=== PATIENT | female | born 1985 | race Caucasian/White ===

== ENCOUNTER 2019-01-22 23:50 | Inpatient (IN) | payer OTHER ==
[~2019-01-22] VITALS: Ht 170.2 cm; Wt 93.9 kg
[2019-01-22 23:50] VITALS: BP 105/60
[~2019-01-22 23:50] MED LIST: ALBU0.0939 IH; ALPR1TAB2 PO; BUDE1AER IH; BUPR300T70 PO; DEPER500 PO; HAL5 PO; PALI234S IM; QUET400T PO; TRAZ-343 PO
--- NOTE | 2019-01-22 23:50 | NUR ---
PATIENT BIB EMS/PD TO ER BED 5.
--- NOTE | 2019-01-22 23:50 | NUR ---
33 Y/O FEMALE BIB EMS FOR 5150/SUICIDAL IDEATION. PER EMS, PT WAS TELLING MOTHER SHE DOESN'T WANT TO WAKE UP ANYMORE. PER MOTHER, PT TOOK BANOPHEN 25MG (60 COUNT). UNSURE OF AMOUNT CONSUMED. PT ALERT TO PAIN ONLY. SPEECH GARBLED AND UNCLEAR. RESPIRATIONS EVEN AND REGULAR. BILAT EYES PERRLA. BILAT HAND STRENGTH FLACID. O2SAT 99% VIA NC @ 2LPM. X2 SIDE RAILS UP. HOB ELEVATED. ER MD AWARE. CONTINUE TO MONITOR.
--- NOTE | 2019-01-22 23:51 | NUR ---
[facility] AT BEDSIDE. Addendum: 01/23/19 at 0013 by [facility] AT BEDSIDE FOR 5150 HOLD.
[2019-01-23] MEDS ORDERED: NACL 0.9% 1,000 ML IV ONE (00:05)
--- NOTE | 2019-01-23 00:10 | NUR ---
CONTACTED POISON CONTROL REGARDING PATIENT OVERDOSE. ADVISED EKG, LABS, AND MONITORING UNTIL PATIENT RETURN TO BASELINE. ER MD HYATT NOTIFIED.
[2019-01-23 00:18] LABS: BASOPHILS % (AUTO) 0.2 % (0.0-2.0); EOSINOPHILS # (AUTO) 0.2 K/uL (0-0.4); EOSINOPHILS % (AUTO) 2.5 % (0.0-4.0); HEMOGLOBIN 14.1 g/dL (12.0-16.0); LYMPHOCYTES # (AUTO) 4.1 K/uL (2.5-16.5); LYMPHOCYTES % (AUTO) 41.1 % (20.5-51.1); MEAN CORPUSCULAR HEMOGLOBIN 31 pg (27-31); MEAN CORPUSCULAR HGB CONC 34 g/dL (33-37); MONOCYTES # (AUTO) 0.6 K/uL (0.8-1.0); MONOCYTES % (AUTO) 6.4 % (1.7-9.3); NEUTROPHILS % (AUTO) 49.8 % (42.2-75.2); PLATELET COUNT (AUTO) 244 K/uL (140-450); RED BLOOD CELL COUNT(AUTO) 4.61 MIL/uL (4.20-5.40); RED CELL DISTRIBUTION WIDTH 13.4 % (11.6-13.7)
[2019-01-23] MEDS ORDERED: GABA400C PO (00:20)
[2019-01-23] MEDS ORDERED: [UNRECOGNIZED DRUG - CODE] PO (00:20)
[2019-01-23] MEDS ORDERED: HALO10TA PO (00:20)
[2019-01-23] MEDS ORDERED: DIPH50CA69 PO (00:20)
[2019-01-23 00:26] LABS: CARBON DIOXIDE 27.8 mmol/L (21-32); CHLORIDE 107 mmol/L (98-107); CREATININE 0.7 mg/dL (0.6-1.3); GFR ARICAN-AMERICAN 125 mL/min (>90); GLUCOSE 90 mg/dL (74-106); POTASSIUM 3.8 mmol/L (3.5-5.1); SODIUM SERUM 142 mmol/L (136-145); UREA NITROGEN, BLOOD 13 mg/dL (7-18)
[2019-01-23 00:34] LABS: ALBUMIN 3.6 g/dL (3.4-5.0); ASPARTATE AMINOTRANSFERASE 14 U/L (15-37); SALICYLATE 3.2 mg/dL (2.8-20.0); TOTAL BILIRUBIN 0.3 mg/dL (0.0-1.0)
[2019-01-23 00:35] LABS: ACETAMINOPHEN < 0.5 ug/ml (10-30)
--- NOTE | 2019-01-23 00:46 | NUR ---
STRAIGHT CATH PERFORMED. PT TOLLERATED PROCEDURE WELL. 300ML CLEAR YELLOW URINE COLLECTED. SENT TO LAB. CONTINUE TO MONITOR.
[2019-01-23 00:56] LABS: BARBITURATE, URINE NEG. ng/ml (NEG <=200); BENZODIAZEPINE, URINE NEG. ng/mL (NEG <=200); CANNABINOID, URINE POS. ng/mL (NEG <=50); COCAINE, URINE NEG. ng/mL (NEG <=300); OPIATE, URINE NEG. ng/mL (NEG <=2000); PHENCYCLIDINE SCREEN,URINE NEG. ng/mL (NEG <=25)
--- NOTE | 2019-01-23 01:00 | NUR ---
PT IN BED. RESTING WITH EYES CLOSED. RR EVEN AND REGULAR. HR EVEN AND REGULAR. VSS. HOB ELEVATED. SITTER AT BEDSIDE. CONTINUE TO MONITOR.
--- NOTE | 2019-01-23 01:08 | NUR ---
CALLED FOR TELEPSYCH REQUEST PER DR. Luis HYATT
--- NOTE | 2019-01-23 01:47 | NUR ---
TELEPSYCH, DR. HUSSEIN, SPOKE WITH AMINA BEATTY
--- NOTE | 2019-01-23 01:51 | NUR ---
SPOKE TO AND GAVE REPORT TO DR ERAZO PSYCHIATRY. INSTRCUTED TO CALL BACK WHEN PT IS AWAKE AND ABLE TO ANSWER QUESTIONS.
--- NOTE | 2019-01-23 02:00 | NUR ---
PT IN BED. RESTING WITH EYES CLOSED. RR EVEN AND REGULAR. HR EVEN AND REGULAR. VSS. HOB ELEVATED. SITTER AT BEDSIDE. CONTINUE TO MONITOR.
--- NOTE | 2019-01-23 02:02 | NUR ---
PT RETURN FROM CT
--- NOTE | 2019-01-23 02:46 | NUR ---
SPOKE TO JAM FROM POISON CONTROLL. REPORT GIVEN. HE STATES TO CONTINUE AIRWAY MANAGEMENT, CARDIAC MONITORING, AND REPEAT TOXICOLOGY. PT'S VSS. AT THIS TIME. RESTING WITH EYES CLOSED. RESPIRATIONS EVEN AND REGULAR. CONTINUE TO MONITOR.
--- NOTE | 2019-01-23 03:00 | NUR ---
PT IN BED. RESTING WITH EYES CLOSED. RR EVEN AND REGULAR. HR EVEN AND REGULAR. VSS. HOB ELEVATED. SITTER AT BEDSIDE. CONTINUE TO MONITOR.
[2019-01-23] MEDS: NACL 0.9% 1,000 ML IV SCH ×2 (03:27→15:45)
[2019-01-23] MEDS ORDERED: ZOLPIDEM 5 MG TAB PO PRN (03:30)
[2019-01-23] MEDS ORDERED: DOCUSATE SODIUM 100 MG GELCAP PO PRN (03:30)
[2019-01-23] MEDS ORDERED: ONDANSETRON 4 MG/2 ML VIAL IM/IVP PRN (03:30)
[2019-01-23] MEDS ORDERED: HYDROcodone/APAP 5/325 MG 1 TAB TAB PO PRN (03:30)
[2019-01-23] MEDS ORDERED: ACETAMINOPHEN 325 MG TAB PO PRN (03:30)
[2019-01-23] MEDS ORDERED: ALBUTEROL SULFATE/IPRATROPIU 3 ML SOL IH PRN (03:40)
[2019-01-23 03:45] LABS: APPEARANCE,URINE CLEAR (CLEAR); BILIRUBIN,URINE NEGATIVE (NEGATIVE); BLOOD, URINE NEGATIVE (NEGATIVE); COLOR,URINE YELLOW (YELLOW); LEUKOCYTE ESTERASE ,URINE NEGATIVE (NEGATIVE); NITRITE, URINE NEGATIVE (NEGATIVE); UGLUCOSE NEGATIVE (NEGATIVE)
--- NOTE | 2019-01-23 03:49 | NUR ---
PT TAKEN OFF SUPPLEMENTAL OXYGEN. HOLDING AT 94% WITH RA. VSS. CONTINUE TO MONITOR.
[2019-01-23 03:52] LABS: PROTHROMBIN TIME 9.9 secs (10.8-13.4)
[2019-01-23 04:00] VITALS: BP 97/57
--- NOTE | 2019-01-23 04:00 | NUR ---
REPORT GIVEN AND CARE TRANSFERED TO AYANNA HUYNH ROOM 109A. TRANSFERED VIA RNEY WITH VSS.
--- NOTE | 2019-01-23 04:00 | NUR ---
Admitted from ER TO TELEMETRY UNIT, with chief complaint of 5150, SUICIDAL IDEATION , 33 y/o ,Female, Sedated, LETHARGIC, RESPONDS TO PAINFUL STIMULI BY MOVING EXTREMITIES, WHEN WAKEN UP SPOKE SOME WORDS BUT WENT BACK TO SLEEP AGAIN. [facility], PT WAS FOUND BY MOTHER IN THE BR HOLDING BOTTLES OF UNKNOWN PILLS THEN LATER MOM FOUND PT COMPLETELY DISORIENTED AND ALMOST UNCONSCIOUS. VS STABLE EXCEPT 02 SAT IS IN THE 80s, CN AND NURSE SUP PUT ON 2 LITERS BY N/C, 02 SAT GOES UP TO 94%. HEAD TO TOE ASSESSMENT DONE, WITH CN AND NURSE MOVIE SHOT CAMERAMAN, NOTED SMALL DRY WOUND AT THE MIDDLE FINGER OF RIGHT HAND AND SOME SCABS ON THE LEFT ARM. NO RESPIRATORY DISTRESS, NO APPEARANCE OF PAIN NOTED , FLACC -0. oriented to call light, bed, phone,television, bathroom, smoking policy,visiting hours, procedures, ID bracelet on. Belongings list checked.
--- NOTE | 2019-01-23 04:01 | NUR ---
Patient's Plan of Care was discussed and reviewed with [employer]: AYANNA LOPEZ
[2019-01-23 04:12] LABS: CHOL/HDL RATIO 3.7 (1-4.5); MAGNESIUM 1.8 mg/dL (1.8-2.4); PHOSPHORUS 4.9 mg/dL (2.5-4.9); THYROID STIMULATING HORMONE 1.63 uIU/mL (0.34-3.74)
--- NOTE | 2019-01-23 06:14 | NUR ---
STILL SLEEPING SOUNDLY. VS REMAIN STABLE - BP - 95/55, HR - 74, 02 SAT - 94 % ON 2 LITERS N/C. NEW SITTER AT THE BEDSIDE MONITORING PATIENT. WILL ENDORSED TO AM NURSE FOR CONTINUITY OF CARE.
--- NOTE | 2019-01-23 06:48 | NUR ---
RESPIRATION EVEN AND UNLABORED. CONDITION REMAIN STABLE. WILL ENDORSE TO AM NURSE FOR CONTINUITY OF CARE.
--- NOTE | 2019-01-23 07:16 | NUR ---
RECEIVED REPORT FROM VENEER TAPING MACHINE OPERATOR NURSE. PATIENT LYING DOWN IN BED SLEEPING, AROUSABLE BY TOUCH AND PAIN STIMULATION, DROWSY AT THIS TIME D/T BENADRYL OVERDOSE. RESPIRATIONS EVEN, UNLABORED, ON O2 2L/MIN VIA NC WITH O2 SAT AT 98%. SKIN COLOR APPROPRIATE TO ETHNICITY, WARM TO TOUCH. SKIN INTACT, HOWEVER, HAS BUE CLOSED SCABS. IV SITE INTACT, PATENT, AND INFUSING IVF PER MD ORDERS. REVIEWED PLAN OF CARE WITH PATIENT. REINFORCEMENT NEEDED PATIENT IS DROWSY. SAFETY MEASURES IN PLACE, CALL LIGHT WITHIN REACH. SITTER AT BEDSIDE. WILL CONTINUE TO MONITOR.
[2019-01-23 07:36] LABS: BASOPHILS % (AUTO) 0.3 % (0.0-2.0); EOSINOPHILS # (AUTO) 0.1 K/uL (0-0.4); EOSINOPHILS % (AUTO) 1.5 % (0.0-4.0); HEMATOCRIT 39.6 % (36-48); HEMOGLOBIN 13.3 g/dL (12.0-16.0); LYMPHOCYTES # (AUTO) 3.3 K/uL (2.5-16.5); LYMPHOCYTES % (AUTO) 34.8 % (20.5-51.1); MEAN CORPUSCULAR HEMOGLOBIN 31 pg (27-31); MEAN CORPUSCULAR HGB CONC 34 g/dL (33-37); MEAN CORPUSCULAR VOLUME 91.6 fL (80-94); MONOCYTES # (AUTO) 0.6 K/uL (0.8-1.0); NEUTROPHILS # (AUTO) 5.5 K/uL (1.8-7.7); NEUTROPHILS % (AUTO) 57.4 % (42.2-75.2); PLATELET COUNT (AUTO) 236 K/uL (140-450); RED BLOOD CELL COUNT(AUTO) 4.32 MIL/uL (4.20-5.40); RED CELL DISTRIBUTION WIDTH 13.4 % (11.6-13.7); WHITE BLOOD COUNT (AUTO) 9.6 K/uL (4.8-10.8)
[2019-01-23 08:00] VITALS: BP 110/62
[2019-01-23] MEDS: ALBUTEROL SULFATE/IPRATROPIU 3 ML SOL IH SCH ×3 (08:13→19:00)
--- NOTE | 2019-01-23 08:24 | NUR ---
LOC ASLEEP NOT AROUSABLE AT THIS TIME PATIENT UNABLE TO PARTICIPATE IN THE INCENTIVE SPIROMETRY THERAPY FOOTWEAR STITCHER TO ATTEMPT AT A LATER TIME
[2019-01-23 08:25] LABS: ANION GAP 11.4 (8-16); CARBON DIOXIDE 24.9 mmol/L (21-32); CREATININE 0.6 mg/dL (0.6-1.3); POTASSIUM 4.3 mmol/L (3.5-5.1)
[2019-01-23 08:27] LABS: MAGNESIUM 1.8 mg/dL (1.8-2.4); PHOSPHORUS 4.1 mg/dL (2.5-4.9)
--- NOTE | 2019-01-23 08:46 | NUR ---
PATIENT HAS BEEN SCREENED AND CATEGORIZED LOW NUTRITION RISK. PATIENT WILL BE SEEN WITHIN 7 DAYS OF ADMISSION. 01/29/[address]
[2019-01-23] MEDS ORDERED: ALPRAZolam 0.5 MG TAB PO SCH (09:00)
[2019-01-23] MEDS ORDERED: HALOPERIDOL 5 MG TAB PO SCH (09:00)
[2019-01-23] MEDS ORDERED: QUEtiapine FUMARATE 100 MG TAB PO SCH (09:00)
[2019-01-23] MEDS ORDERED: DIVALPROEX 500 MG TABEC PO SCH (09:00)
[2019-01-23] MEDS ORDERED: GABAPENTIN 100 MG CAP PO SCH (09:00)
--- NOTE | 2019-01-23 09:40 | NUR ---
PATIENT LYING DOWN IN BED SLEEPING, AROUSABLE BY VOICE AND TOUCH. CONDITION UNCHANGED. SITTER AT BEDSIDE. WILL CONTINUE TO MONITOR.
[2019-01-23] MEDS: GABAPENTIN 300 MG CAP PO SCH ×2 (10:00→22:28)
--- NOTE | 2019-01-23 10:07 | NUR ---
PATIENT LYING DOWN IN BED SLEEPING, AROUSABLE BY VOICE AND TOUCH. SCHEDULED MEDICATIONS DUE GIVEN. WILL CONTINUE TO MONITOR.
--- NOTE | 2019-01-23 11:40 | NUR ---
[facility] s/w Rosa, packet fax for review [facility] s/w Marybel no beds at this time [facility] s/w Annabel packet fax for review [facility] s/w Ray no beds [facility] s/w Lata, packet fax for review [facility] s/w Shantel no beds
--- NOTE | 2019-01-23 14:21 | NUR ---
SW attempted to complete assessment with patient. Patient did not respond to verbal stimuli. SW attempted 3x. Per nursing staff, SW will complete assessment at a later time. SW/CM will follow up as needed.
--- NOTE | 2019-01-23 14:30 | NUR ---
SATURATION 91% ON SUPPLEMENTAL OXYGEN AT 1 LPM VIA NC POST HHN THERAP INCREASED FIO2 TO 1.5 LPM VIA NC Addendum: 01/23/19 at 1446 by Jose Pérez RT YAQUELIN/AMINA NOTIFIED
--- NOTE | 2019-01-23 14:42 | NUR ---
S/W Garth (RN), patient not medically cleared. Patient to be evaled by psych MD in the evening. Once medically cleared and meets criteria for psych inpatient, will start looking for placement
--- NOTE | 2019-01-23 14:45 | NUR ---
ASLEEP SLIGHTLY AROUSABLE PATIENT UNABLE SUSTAIN ALERTNESS AND FOLLOW COMMANDS FOR INCENTIVE SPIROMETRY THERAPY
--- NOTE | 2019-01-23 15:45 | NUR ---
PATIENT LYING DOWN IN BED SLEEPING, AROUSABLE BY TOUCH. NEW IVF BAG HANGED. WILL CONTINUE TO MONITOR.
[2019-01-23 16:00] VITALS: BP 96/62
--- NOTE | 2019-01-23 16:06 | NUR ---
MOTHER CALLED AND LEFT NAME AND NUMBER OF PATIENT'S PSYCHIATRIST SINCE PATIENT WAS 15 YEARS OLD PER MOTHER REPORTS. PSYCHIATRIST: MATT TEJADA [phone] WILL NOTIFY
--- NOTE | 2019-01-23 18:00 | NUR ---
PATIENT LYING DOWN IN BED SLEEPING, AROUSABLE BY TOUCH. CONDITION UNCHANGED. WILL CONTINUE TO MONITOR.
--- NOTE | 2019-01-23 19:16 | NUR ---
GAVE REPORT TO SLOT FLOOR PERSON FOR CONTINUITY OF CARE. PATIENT IN STABLE CONDITION.
--- NOTE | 2019-01-23 19:18 | NUR ---
RECEIVED REPORT FROM AM SHIFT NURSE. PATIENT LYING DOWN IN BED SLEEPING, AROUSABLE BY TOUCH AND PAIN STIMULATION, DROWSY AT THIS TIME D/T BENADRYL OVERDOSE. RESPIRATIONS EVEN, UNLABORED, ON O2 2L/MIN VIA NC WITH O2 SAT AT 90%. HAS BUE CLOSED SCABS. AND ON R INDEX FINGER. R AC G 20 IV SITE INTACT, PATENT, AND INFUSING IVF ORDERED. REVIEWED POC. REINFORCEMENT NEEDED PATIENT IS DROWSY. SAFETY MEASURES IN PLACE, CALL LIGHT WITHIN REACH. SITTER AT BEDSIDE. WILL CONTINUE TO MONITOR.
--- NOTE | 2019-01-23 19:35 | NUR ---
PT REFUSED HHN TX AND ASSESSMENT. PT KEPT SAYING GO AWAY. NO OXYGEN IN USE. NO DISTRESS OR SOB NOTED. RN AND CHARGE NURSE AWARE. SITTER AT PT'S DOOR.
--- NOTE | 2019-01-23 19:36 | NUR ---
PT REFUSED BREATHING TX; DR. BOONE INFORMED
[2019-01-23 20:00] VITALS: BP 89/53
[2019-01-23] MEDS ORDERED: traZODone 50 MG TAB PO SCH (21:00)
[2019-01-23] MEDS: DIVALPROEX 250 MG TABEC PO SCH (22:28)
--- NOTE | 2019-01-23 23:23 | NUR ---
INFORMED DR. BOONE THAT PT REFUSED HER MEDS; SHE HAS REFUDSED EARLIER, AND TRIED TO CONVINCE HER; SHE SAID YES TO HEPARIN SQ. NON-ADMINISTERED DEPAKOTE AND GABAPENTIN.
--- NOTE | 2019-01-23 23:25 | NUR ---
PER DR. AGUILAR SAID TO WATCH OUT FOR BP; REFER FOR MAP LESS THAN 60; AND LESS THAN 90% O2 SAT
--- NOTE | 2019-01-24 00:32 | NUR ---
D5 NS STILL ONGOING NON ADMINISTERED 0032
[2019-01-24] MEDS: NACL 0.9% 1,000 ML IV SCH ×3 (00:58→23:20)
[2019-01-24 04:00] VITALS: BP 97/52
[2019-01-24] MEDS: DIVALPROEX 250 MG TABEC PO SCH (05:00)
--- NOTE | 2019-01-24 05:00 | NUR ---
PT REFUSED HER MEDS-DEPAKOTE INFORMED DR. BOONE. SAID THEY MIGHT ORDER ANOTHER ROUTE OF MEDS
--- NOTE | 2019-01-24 06:43 | NUR ---
PT ASLEEP MOST OF THE TIME BUT AROUSABLE, STILL DROWSY. PT WENT TO THE BATHROOM ONCE THIS SHIFT. NO RESPIRATORY DISTRESS LAST SAT WAS 91%. TO MONITOR O2 SAT AND MAP PER DR AND REFER ACCORDINGLY. WILL ENDORSE TO NEXT SHIFT
[2019-01-24 07:17] LABS: BASOPHILS % (AUTO) 0.2 % (0.0-2.0); EOSINOPHILS # (AUTO) 0.1 K/uL (0-0.4); EOSINOPHILS % (AUTO) 1.2 % (0.0-4.0); HEMATOCRIT 37.9 % (36-48); HEMOGLOBIN 12.7 g/dL (12.0-16.0); LYMPHOCYTES # (AUTO) 3.5 K/uL (2.5-16.5); LYMPHOCYTES % (AUTO) 33.9 % (20.5-51.1); MEAN CORPUSCULAR HEMOGLOBIN 31 pg (27-31); MEAN CORPUSCULAR HGB CONC 34 g/dL (33-37); MEAN CORPUSCULAR VOLUME 91.4 fL (80-94); MONOCYTES # (AUTO) 0.5 K/uL (0.8-1.0); MONOCYTES % (AUTO) 4.8 % (1.7-9.3); NEUTROPHILS # (AUTO) 6.2 K/uL (1.8-7.7); NEUTROPHILS % (AUTO) 59.9 % (42.2-75.2); PLATELET COUNT (AUTO) 224 K/uL (140-450); RED BLOOD CELL COUNT(AUTO) 4.14 MIL/uL (4.20-5.40); RED CELL DISTRIBUTION WIDTH 13.4 % (11.6-13.7); WHITE BLOOD COUNT (AUTO) 10.3 K/uL (4.8-10.8)
--- NOTE | 2019-01-24 07:26 | NUR ---
RECEIVED BEDSIDE REPORT FROM COMPOSING ROOM SUPERVISOR NURSE FOR CONTINUITY OF CARE. PATIENT IS AWAKE AND WALKING TO THE BATHROOM AT THIS TIME. EVEN AND UNLABORED CHEST RISES NOTED. DENIES PAIN AND SOB. NO SIGNS OF DISTRESS NOTED. IV ON RAC 20G, CLEAN AND DRY, INFUSING PER MD ORDER. SCABS ON BUE AND INDEX FINGER, OTHERWISE SKIN INTACT AND CLEAN. PATIENT IS ABLE TO AMBULATE WITH STANDBY AND CONTINENT. DISCUSSED PLAN OF CARE WITH PATIENT AND PATIENT VERBALIZED OK. SAFETY MEASURES IN PLACE. BED IN LOW POSITION. 1:1 SITTER BY BEDSIDE.
[2019-01-24 07:33] LABS: ANION GAP 11.9 (8-16); CARBON DIOXIDE 26.3 mmol/L (21-32); CREATININE 0.7 mg/dL (0.6-1.3); MAGNESIUM 1.6 mg/dL (1.8-2.4); PHOSPHORUS 3.1 mg/dL (2.5-4.9); POTASSIUM 4.2 mmol/L (3.5-5.1)
[2019-01-24 08:00] VITALS: BP 101/62
[2019-01-24] MEDS: VENLAFAXINE XR 75 MG CAPER PO SCH ×2 (09:38→19:55)
[2019-01-24] MEDS: GABAPENTIN 300 MG CAP PO SCH ×2 (09:38→19:56)
--- NOTE | 2019-01-24 09:42 | NUR ---
ADMINISTERED MEDS PER MD ORDER, PATIENT TOLERATED WELL. PATIENT IS RESTING ON BED AT THIS TIME. SAFETY MEASURES IN PLACE. 1:1 SITTER AT BEDSIDE.
--- NOTE | 2019-01-24 10:05 | NUR ---
PATIENT COMPLAINED SHE HAS URINATION URGENCY BUT SHE COULDN'T URINE AND TRIED 2X. PERFORMED URINE BLADDER SCAN AND OBSERVED 951ML URINE. NOTIFIED DR GRAY AND PER DR GRAY, SHE WILL PUTS IN AN ORDER FOR STRAIGHT CATH.
--- NOTE | 2019-01-24 10:15 | NUR ---
PATIENT IS ACKNOWLEDGED AND AGREED FOR STRAIGHT CATH. PATIENT AGREED AND GAVE VERBAL PERMIT THAT PROFESSOR MOSELEY IS PERFORMING THE STRAIGHT CATH AND HER FEMALE STUDENT NURSE OBSERVE. PREFORMED STRIGHT CATH AND COLLECTED 1100 ML OF URINE, PATIENT TOLERATED WELL. NO SIGNS OF DISTRESS NOTED. BED IN LOW POSITION. 1:1 SITTER AT BEDSIDE.
--- NOTE | 2019-01-24 10:51 | NUR ---
PATIENT IS TALKING TO MOTHER THOMPSON AT BEDSIDE. NO SIGNS OF DISTRESS NOTED. SAFETY MEASURES IN PLACE. 1:1 SITTER BY BEDSIDE.
--- NOTE | 2019-01-24 11:30 | NUR ---
CALLED [phone] TO [facility] AND GAVE FULL REPORT TO JAVY, ANSWERED ALL JAVY'S QUESTIONS. JAVY VERBALIZED AND ACKNOWLEDGED THAT PATIENT IS GOING TO TRANSFER TO HIS FACILITY AND UNDER THE CARE OF DR PISANO IN ROOM 706 BED 1. PROVIDED CALL BACK NUMBER TO JAVY FOR FURTHER QUESTION. Addendum: 01/24/19 at 1202 by Jade Hinton RN WRONG PATIENT
--- NOTE | 2019-01-24 11:45 | NUR ---
DR GRAY IS TALKING TO PATIENT AND PATIENT'S MOTHER AT BEDSIDE. SAFETY MEASURES IN PLACE. BED IN LOW POSITION. 1:1 SITTER AT BEDSIDE.
--- NOTE | 2019-01-24 11:52 | NUR ---
PATIENT COMPLAINED OF FEELING ANXIOUS, ADMINISTERED PRN ATIVAN, PATIENT TOLERATED WELL. PATIENT IS TALKING TO EMBROIDERY CUTTER AT THIS TIME. BED IN LOW POSITION. SAFETY MEASURES IN PLACE. 1:1 SITTER BY BEDSIDE.
[2019-01-24] MEDS: LORazepam 2 MG/ML VIAL IM/IVP PRN (11:55)
[2019-01-24] MEDS ORDERED: MAGNESIUM OXIDE 400 MG TAB PO SCH (12:00)
--- NOTE | 2019-01-24 13:06 | NUR ---
PATIENT IS TALKING TO DIRECT SUPPORT PROFESSIONAL. NO SIGNS OF DISTRESS NOTED. BED IN LOW POSITION. 1:1 SITTER AT BEDSIDE.
--- NOTE | 2019-01-24 15:16 | NUR ---
PATIENT IS RESTING ON BED. EVEN CHEST RINSES NOTED. NO SIGNS OF DISTRESS NOTED. BED IN LOW POSITION AND SAFETY MEASURES IN PLACE. 1:[address]
[2019-01-24 16:00] VITALS: BP 104/63
--- NOTE | 2019-01-24 16:34 | NUR ---
SW faxed clinical information to [facility] [phone]. SW spoke to [facility] [phone]. SW/KATHY will follow up as needed.
--- NOTE | 2019-01-24 17:10 | NUR ---
PATIENT IS SITTING UP ON BED AND EATING DINNER. RESPIRATION EVEN AND UNLABORED. DENIES SUICIDAL IDEATION. NO SIGNS OF DISTRESS NOTED. BED IN LOW POSITION AND SAFETY MEASURES IN PLACE. 1:1 SITTER BY BEDSIDE.
--- NOTE | 2019-01-24 18:23 | NUR ---
D/C ORDER RECEIVED AND ACKNOWLEDGED, PENDING ON INPATIENT PSYCH FACILITY PLACEMENT AT THIS TIME. WILL PROCESS D/C DOCUMENTATION ONCE HEAR FROM CM/SS.
--- NOTE | 2019-01-24 19:11 | NUR ---
ENDORSED PATIENT AT BEDSIDE TO HEATING ELEMENT BUILDER NURSE FOR CONTINUITY OF CARE. PATIENT IS AWAKE AND GETTING BREATHING TREATMENT AT THIS TIME. PATIENT IS IN STABLE CONDITION. BED IN LOW POSITION AND SAFETY MEASURES IN PLACE. 1:1 SITTER BY BEDSIDE.
--- NOTE | 2019-01-24 19:15 | NUR ---
RECEIVED PT FROM RHONDA RN PT IS AAOX3 AMBULATORY, IV ON RT AC INFUSING WELL SCABS ON BUE, PT COOPERATIVE TO FOLLOW COMMANDS , SITTER 1:1 ALL TIMES FOR DX SUICIDAL IDEATION ON CLOSE MONITORING INITIAL ASSESSMENT DONE
[2019-01-24] MEDS: HALOPERIDOL 5 MG TAB PO SCH ×2 (19:54→19:55)
[2019-01-24 20:00] VITALS: BP 105/60
--- NOTE | 2019-01-24 21:00 | NUR ---
PT RESTING ON BED NOT DISTRESS NOTED SITTER AT BED SIDE ALL TIME
--- NOTE | 2019-01-24 23:00 | NUR ---
AFTER ALL NIGHT MEDIC GIVEN PT IS SLEEPING AND VITALS SIGNS STABLE , SITTER AT BED SIDE PT ON CLOSE MONITORING
[2019-01-25] VITALS: BP 101/58
--- NOTE | 2019-01-25 02:00 | NUR ---
PT REMAIN QUIET NOT AGITATION, IV ON RT HAND INFUSING WELL SITTER AT BED SIDE ALL TIMES
--- NOTE | 2019-01-25 03:19 | NUR ---
Still no beds available , will continue to look for placement, floor nurse Xi HUYNH made aware.
--- NOTE | 2019-01-25 04:00 | NUR ---
SPONGE BTH GIVEN LINEN CHANGED PT REMAIN QUIET NOT ANXIOUS, IV ON RT ARM INFUSING WELL, SITTER AT BED SIDE ALL TIMES
[2019-01-25] MEDS: ALBUTEROL SULFATE/IPRATROPIU 3 ML SOL IH SCH ×4 (06:33→19:38)
--- NOTE | 2019-01-25 06:37 | NUR ---
SITTER AT BED SIDE ALL TIMES PT RESTING ON BED, NOT AGITATION , REMAIN STABLE, IV ON RT HAND INFUSING WELL PT WILL BE ENDORSED TO DAY SHIFT NURSE FOR CONTINUITY OF CARE
[2019-01-25 06:57] LABS: BASOPHILS % (AUTO) 0.3 % (0.0-2.0); EOSINOPHILS # (AUTO) 0.2 K/uL (0-0.4); EOSINOPHILS % (AUTO) 2.4 % (0.0-4.0); HEMATOCRIT 38.9 % (36-48); HEMOGLOBIN 13.1 g/dL (12.0-16.0); LYMPHOCYTES # (AUTO) 3.3 K/uL (2.5-16.5); LYMPHOCYTES % (AUTO) 41.1 % (20.5-51.1); MEAN CORPUSCULAR HEMOGLOBIN 31 pg (27-31); MEAN CORPUSCULAR HGB CONC 34 g/dL (33-37); MEAN CORPUSCULAR VOLUME 91.5 fL (80-94); MONOCYTES # (AUTO) 0.5 K/uL (0.8-1.0); MONOCYTES % (AUTO) 5.7 % (1.7-9.3); NEUTROPHILS % (AUTO) 50.5 % (42.2-75.2); PLATELET COUNT (AUTO) 224 K/uL (140-450); RED BLOOD CELL COUNT(AUTO) 4.25 MIL/uL (4.20-5.40); RED CELL DISTRIBUTION WIDTH 13.5 % (11.6-13.7)
[2019-01-25 07:00] LABS: ANION GAP 10.2 (8-16); CARBON DIOXIDE 24.8 mmol/L (21-32); CREATININE 0.6 mg/dL (0.6-1.3)
[2019-01-25 07:13] LABS: MAGNESIUM 1.5 mg/dL (1.8-2.4)
--- NOTE | 2019-01-25 07:14 | NUR ---
RECEIVED BED SIDE REPORT FROM SENIOR SOFTWARE ARCHITECT RN. PT IN STABLE CONDITION. SEEN WASHING FACE AND TEETH WITH SITTER AT SIDE. WILL CONTINUE TO MONITOR
[2019-01-25] MEDS: NACL 0.9% 1,000 ML IV SCH ×2 (07:52→17:01)
[2019-01-25 08:00] VITALS: BP 109/55
--- NOTE | 2019-01-25 08:37 | NUR ---
LATRICE called [facility] to follow up with bed availability. Spoke to Curt [phone]. Curt stated he received fax and that he would call back with further information. LATRICE/KATHY will follow up as needed.
[2019-01-25] MEDS: HALOPERIDOL 5 MG TAB PO SCH ×2 (08:41→20:10)
[2019-01-25] MEDS: GABAPENTIN 300 MG CAP PO SCH ×2 (08:41→20:09)
[2019-01-25] MEDS: VENLAFAXINE XR 75 MG CAPER PO SCH ×2 (08:41→20:09)
[2019-01-25] MEDS: MORPHINE SULFATE 2 MG/ML SYR IVP PRN (08:45)
[2019-01-25] MEDS: NICOTINE TRANSD SYS 21 MG/24 HR PATCH TD SCH (08:50)
[2019-01-25] MEDS: LORazepam 2 MG/ML VIAL IM/IVP PRN ×2 (11:24→20:12)
--- NOTE | 2019-01-25 11:30 | NUR ---
PT STATED "I DONT WANT TO LIVE ANYMORE, I DONT HAVE A PURPOSE" AND WAS CRYING. GAVE ATIVAN PER MD ORDER, WILL CONTINUE TO MONITOR
--- NOTE | 2019-01-25 12:01 | NUR ---
LATRICE called [facility] [phone]. Spoke to Nay in Admissions. Nay stated that he was unable to take this patient because she ran out of psych bed days. LATRICE/KATHY will follow up as needed.
--- NOTE | 2019-01-25 13:39 | NUR ---
WENT TO CHECK ON PT. PT SEEMS CALMER, CURRENTLY EATING LUNCH AT BEDSIDE. PT STATES THAT SHE "FEELS BETTER". SITTER AT DOOR
--- NOTE | 2019-01-25 13:57 | NUR ---
PT CURRENTLY SLEEPING. SITTER AT BEDSIDE. MAGNESIUM OXIDE ORDERED, TOOK MEDICATIONS OUT, PT REFUSED TO TAKE MEDS. EDUCATED PT ON THE IMPORTANCE OF TAKING MEDICATION BUT PT STILL REFUSED
[2019-01-25] MEDS ORDERED: MAGNESIUM OXIDE 400 MG TAB PO SCH (14:00)
[2019-01-25 16:00] VITALS: BP 114/72
--- NOTE | 2019-01-25 17:11 | NUR ---
PT STATED THAT SHE CALLED [facility] AND THEY TOLD HER THAT THEY HAD A ROOM AVAILABLE FOR HER. CM SOILA TOLD ME THAT THEY DO NOT. TOLD PT THAT SOILA WAS LOOKING FOR ANOTHER SNF FACILITY, PT GETTING ANXIOUS, CALMED AND REASSURED PT THAT CM WILL TRY TO GET HER BACK TO [facility]
--- NOTE | 2019-01-25 19:24 | NUR ---
RECEIVED BEDSIDE REPORT FROM AGUS HUYNH. PT IS SLEEPING COMFORTABLY IN BED. RESPIRATIONS ARE EQUAL AND UNLABORED. NO S/S OF DISTRESS. PT WITH 1:1 SITTER. SAFETY MEASURES ARE IN PLACE. WILL ROUND FREQUENTLY.
--- NOTE | 2019-01-25 19:36 | NUR ---
ENDORSED PT TO SCALLOP SHUCKER RN. PT IN STABLE CONDITION
--- NOTE | 2019-01-25 19:49 | NUR ---
RECEIVED PATIENT ON ROOM AIR, PULSE OX SAT 93%. SCHEDULED BREATHING TREATMENT ADMINISTERED. TOLERATED TX WELL, NO ADVERSE SIDE EFFECTS. NO RESPIRATORY DISTRESS NOTED AT THIS TIME. WILL CONTINUE TO MONITOR.
--- NOTE | 2019-01-25 20:08 | NUR ---
SCHEDULED MEDICATIONS WERE GIVEN. ADMINISTERED ATIVAN PT WAS ANXIOUS. PT TOLERATED WELL. SAFETY MEASURES ARE IN PLACE. 1:1 SITTER. WILL ROUND FREQUENTLY.
[2019-01-25 23:48] VITALS: BP 103/65
--- NOTE | 2019-01-25 23:49 | NUR ---
VITAL SIGNS ARE WITHIN NORMAL LIMITS. DENIES ANY PAIN OR SOB. ALL NEEDS MET AT THIS TIME. 1:1 SITTER. WILL CONTINUE TO MONITOR.
--- NOTE | 2019-01-26 01:14 | NUR ---
PATIENT IS SLEEPING COMFORTABLY IN BED. 1:1 SITTER. ALL NEEDS MET AT THIS TIME.
--- NOTE | 2019-01-26 03:18 | NUR ---
PT IS SLEEPING COMFORTABLY IN BED. NO S/S OF DISTRESS. 1:1 SITTER AT BEDSIDE.
[2019-01-26] MEDS: NACL 0.9% 1,000 ML IV SCH ×2 (03:52→10:47)
--- NOTE | 2019-01-26 04:54 | NUR ---
Still no vacancy at any of the designated facilities, will notify floor nurse if placement is found.
--- NOTE | 2019-01-26 05:10 | NUR ---
PATIENT IS GETTING BLOOD DRAWN ASKING, "HAVE THEY FOUND A BED YET" EXPLAINED TO PATIENT CASE MANAGEMENT IS WORKING ON GETTING BED WILL NOTIFY PATIENT WITH ANY UPDATES. PT IS RELAXED LAYING IN BED. NO S/S OF DISTRESS. WILL CONTINUE TO MONITOR.
--- NOTE | 2019-01-26 06:45 | NUR ---
IV WAS LEAKING. REMOVED IV CATH IS INTACT. NEW IV ON L FA 22G INSERTED BY CHARGE NURSE ON FIRST ATTEMPT. PT TOLERATED WELL. NO S/S OF DISTRESS.
[2019-01-26 07:13] LABS: BASOPHILS % (AUTO) 0.3 % (0.0-2.0); EOSINOPHILS # (AUTO) 0.3 K/uL (0-0.4); HEMATOCRIT 39.7 % (36-48); HEMOGLOBIN 13.3 g/dL (12.0-16.0); LYMPHOCYTES # (AUTO) 3.5 K/uL (2.5-16.5); LYMPHOCYTES % (AUTO) 41.4 % (20.5-51.1); MEAN CORPUSCULAR HEMOGLOBIN 31 pg (27-31); MEAN CORPUSCULAR HGB CONC 34 g/dL (33-37); MONOCYTES # (AUTO) 0.5 K/uL (0.8-1.0); MONOCYTES % (AUTO) 5.6 % (1.7-9.3); NEUTROPHILS # (AUTO) 4.2 K/uL (1.8-7.7); NEUTROPHILS % (AUTO) 49.7 % (42.2-75.2); PLATELET COUNT (AUTO) 239 K/uL (140-450); RED BLOOD CELL COUNT(AUTO) 4.32 MIL/uL (4.20-5.40); RED CELL DISTRIBUTION WIDTH 13.2 % (11.6-13.7); WHITE BLOOD COUNT (AUTO) 8.5 K/uL (4.8-10.8)
[2019-01-26 07:16] LABS: ANION GAP 11.5 (8-16); CARBON DIOXIDE 26.5 mmol/L (21-32); CREATININE 0.6 mg/dL (0.6-1.3)
[2019-01-26 07:20] LABS: MAGNESIUM 1.5 mg/dL (1.8-2.4)
[2019-01-26] MEDS: ALBUTEROL SULFATE/IPRATROPIU 3 ML SOL IH SCH ×2 (07:23→11:06)
--- NOTE | 2019-01-26 07:23 | NUR ---
GAVE BEDSIDE REPORT TO DAY SHIFT RN. PT ENDORSED IN STABLE CONDITION.
--- NOTE | 2019-01-26 07:24 | NUR ---
RECEIVED ENDORSEMENT FROM FLOOR SPECIALIST NURSE. PATIENT IS AAOX4. RESPIRATIONS ARE EVEN AND UNLABORED ON ROOM AIR. PATIENT DENIES ANY PAIN. PATIENT DENIES ANY SUICIDAL IDEATION AT THIS TIME. LEFT FA 22G IV INTACT, PATENT AND INFUSING IVF. PLAN OF CARE WAS REVIEWED WITH PATIENT. PATIENT VERBALIZED UNDERSTANDING. SAFETY MEASURES IN PLACE, CALL LIGHT WITHIN REACH.
[2019-01-26 08:00] VITALS: BP 116/65
[2019-01-26] MEDS: GABAPENTIN 300 MG CAP PO SCH (08:33)
[2019-01-26] MEDS: NICOTINE TRANSD SYS 21 MG/24 HR PATCH TD SCH (08:34)
[2019-01-26] MEDS: LORazepam 2 MG/ML VIAL IM/IVP PRN (08:35)
[2019-01-26] MEDS ORDERED: MAGNESIUM OXIDE 400 MG TAB PO SCH (09:00)
[2019-01-26] MEDS: VENLAFAXINE XR 75 MG CAPER PO SCH (09:03)
--- NOTE | 2019-01-26 09:05 | NUR ---
ADMINISTERED SCHEDULED MEDICATIONS. PATIENT REPORTED FEELING ANXIOUS. ADMINISTERED ATIVAN PRN IVP. NO OTHER NEEDS AT THIS TIME.
[2019-01-26] MEDS: HALOPERIDOL 5 MG TAB PO SCH (09:13)
--- NOTE | 2019-01-26 09:13 | NUR ---
ADMINISTERED HALDOL NONSCHEDULED PER PHARMACY. OTHER SHIFT DOCUMENTED WRONG TIME.
--- NOTE | 2019-01-26 09:29 | NUR ---
SPOKE WITH [facility] REGARDING 5150 HOLD. [facility] STATED THEY ARE STILL TRYING TO FIND PLACEMENT.
--- NOTE | 2019-01-26 09:30 | NUR ---
Spoke with patient nurse regarding 5150 being . Per nurse, currently waiting for doctor to reassess, No eta.Call Center will continue to follow up.
--- NOTE | 2019-01-26 09:32 | NUR ---
LEFT MESSAGE FOR DR. BHAKTA REGARDING EXPIRATION OF PATIENTS 5150 HOLD. AWAITING CALL BACK OR DR TO SEE PATIENT.
--- NOTE | 2019-01-26 11:15 | NUR ---
PATIENT SLEEPING, EASILY AROUSABLE. NO OTHER NEEDS AT THIS TIME.
[2019-01-26] MEDS: MORPHINE SULFATE 2 MG/ML SYR IVP PRN (12:13)
--- NOTE | 2019-01-26 13:15 | NUR ---
PATIENT RESTING IN BED. DENIES PAIN AT THIS TIME. SITTER IS PRESENT AT BEDSIDE. NO OTHER NEEDS AT THIS TIME.
--- NOTE | 2019-01-26 13:36 | NUR ---
01/26/19 RD INITIAL ASSESSMENT COMPLETED PLEASE REFER TO NUTRITION ASSESSMENT UNDER CARE ACTIVITY FOR ESTIMATED NUTRITIONAL NEEDS. 1. CONTINUE REGULAR DIET TOLERATED 2. RD TO FOLLOW-UP 5-7 DAYS, LOW RISK MANOLO COUCH RD
--- NOTE | 2019-01-26 15:10 | NUR ---
PATIENT SIGNED AMA FORM. DR. GRAY EXPLAINED THE RISKS AND BENEFITS. PATIENT VERBALIZED UNDERSTANDING. IV WAS REMOVED, CANNULA IS INTACT, MINIMAL BLOOD.
--- NOTE | 2019-01-26 15:29 | NUR ---
REMOVED ID BANDS. ACCOMPANIED PATIENT TO THE LOBBY. PATIENT AMBULATED WITH STEADY GAIT. ALL BELONGINGS LEFT WITH PATIENT. BUS PASS AND PRESCRIPTIONS GIVEN. PATIENT IS STABLE IS AT THIS TIME.
== END 2019-01-26 15:29 | disposition left against medical advice (07) | DRG 917 ==
LOC: MED 23:50 → MTU 01-23 03:30
PROVIDERS: ADMIT General Practice; ATTEND General Practice
DX: T45.0X2A Poisoning by antiallergic and antiemetic drugs, intentional self-harm, initial encounter (principal); G92 Toxic encephalopathy; R45.851 Suicidal ideations; E66.9 Obesity, unspecified; E83.42 Hypomagnesemia; F20.9 Schizophrenia, unspecified; E87.8 Other disorders of electrolyte and fluid balance, not elsewhere classified; I10 Essential (primary) hypertension; J45.909 Unspecified asthma, uncomplicated; Z53.21 Procedure and treatment not carried out due to patient leaving prior to being seen by health care provider; T43.622A Poisoning by amphetamines, intentional self-harm, initial encounter; Y92.89 Other specified places as the place of occurrence of the external cause; Z68.32 Body mass index [BMI] 32.0-32.9, adult; Z71.3 Dietary counseling and surveillance; Z88.2 Allergy status to sulfonamides; Z88.8 Allergy status to other drugs, medicaments and biological substances; Z79.899 Other long term (current) drug therapy
CPT/HCPCS: 36415; 70450; 80048; 80053; 80305; 81003; 81025; 82140; 83036; 83690; 83735; 84100; 84134; 84443; 85025; 85610; 85730; 87081; 93005; 94640; 96360; 99285; C1758; G0480; G0482; J1630; J1644; J2060; J2270; J7030; J7620